=== PATIENT | male | born 1930 | race Caucasian/White ===

== ENCOUNTER 2017-12-25 10:15 | Emergency (ER) | payer MEDICARE, BC, MEDICAID ==
[2017-12-25 10:22] VITALS: BP 120/68
[2017-12-25] MEDS: Albuterol/Ipratropium 3.0-0.5 MG/3 ML Neb Soln NEB ONE (11:02)
--- NOTE | 2017-12-25 11:33 | EDM.PDOC ---
ED HPI GENERAL MEDICAL PROBLEM - General Chief Complaint: Respiratory Problem Stated Complaint: Chest Congestion, ?SOB Time Seen by Provider: 12/25/17 10:34 Source of Information: Reports: Patient, Family (son) History Limitations: Reports: Altered Mental Status - History of Present Illness INITIAL COMMENTS - FREE TEXT/NARRATIVE: HAs been having episodes where he will cough so hard he chokes and at times will vomit but it is thick mucus. He has been wheezing audibly at times. Son states that when he starts to cough at times it is so harsh he turns bright red. Mucus is usually a thick white with rajput streaks at times. No fever noted. Has been ongoing for awhile. Dr. Cortes recently changed him from claritin to mucinex to see f that would help more. They have not noted that it has been easier for him to expectorate it out. Onset: Gradual Location: Reports: Chest Associated Symptoms: Reports: Cough - Related Data Allergies Allergy/AdvReac Type Severity Reaction Status Date / Time Sulfa (Sulfonamide Allergy Hives Verified 12/25/17 10:22 Antibiotics) Home Meds: Home Meds Aspirin [Halfprin] 1 tab PO DAILY 04/03/15 [History] Metoprolol Tartrate 12.5 mg PO BID 04/03/15 [History] Cyanocobalamin (Vitamin B-12) [Cyanocobalamin Injection] 1,000 mcg IJ Q30D 04/10 [History] Insuln Asp Prot/Insulin Aspart [NovoLOG Mix 70-30] 24 unit SUBCUT BEDTIME [History] Insuln Asp Prot/Insulin Aspart [NovoLOG Mix 70-30] 48 unit SUBCUT ACBREAKFAST [History] Polyethylene Glycol 3350 [MiraLAX] 1 pkt PO DAILY 03/29/16 [History] Triamcinolone Acetonide [Triamcinolone Acetonide 0.1% Crm] 1 applic TOP BID PRN 03/29/16 [History] Lutein [Natural Lutein] 1 cap PO DAILY 12/25/17 [History] Magnesium 250 mg PO DAILY 12/25/17 [History] Pantoprazole Sodium 40 mg PO DAILY 12/25/17 [History] Sertraline HCl 50 mg PO DAILY 12/25/17 [History] guaiFENesin [Mucinex] 600 mg PO BID 03/01/18 [History] Past Medical History HEENT History: Reports: Impaired Vision Cardiovascular History: Reports: CAD, Heart Failure, Hypertension, PVD Respiratory History: Reports: None Gastrointestinal History: Reports: GERD Neurological History: Reports: TIA, Other (See Below) Other Neuro History: polyneuropathy Psychiatric History: Reports: Dementia Endocrine/Metabolic History: Reports: Diabetes, Type II Hematologic History: Reports: B12 Deficiency Dermatologic History: Reports: Other (See Below) Other Dermatologic History: dermatitis, pruritis - Past Surgical History GI Surgical History: Reports: Appendectomy, Cholecystectomy, Colonoscopy, Hernia Repair/Other Social & Family History - Tobacco Use Smoking Status *Q: Former Smoker Years of Tobacco use: 15 Packs/Tins Daily: 0.5 Used Tobacco, but Quit: Yes Month Tobacco Last Used: ?1989 - Recreational Drug Use Recreational Drug Use: No - Living Situation & Occupation Living situation: Reports: , Extended Care Facility Occupation: Retired ED ROS GENERAL - Review of Systems Review Of Systems: See Below Constitutional: Denies: Fever, Chills HEENT: Denies: Rhinitis, Sinus Problem, Throat Pain Respiratory: Reports: Shortness of Breath, Wheezing, Cough, Sputum (thick white with rajput mucus streaks.) Cardiovascular: Reports: No Symptoms GI/Abdominal: Reports: Vomiting (only when he starts to cough hard.) Musculoskeletal: Reports: No Symptoms ED EXAM, GENERAL - Physical Exam Exam: See Below Exam Limited By: No Limitations General Appearance: Alert, WD/WN, Mild Distress (with coughing) Ears: Normal External Exam, Normal Canal, Normal TMs Nose: Normal Inspection Throat/Mouth: Normal Inspection, Normal Oropharynx, No Airway Compromise Head: Atraumatic, Normocephalic Neck: Normal Inspection, Supple, Non-Tender Respiratory/Chest: No Respiratory Distress, Wheezing (to all initially. After duoneb treatment his wheezing did stop and he had occasional rhonchi noted.) Cardiovascular: Normal Peripheral Pulses, Regular Rate, Rhythm, No Edema GI/Abdominal: Normal Bowel Sounds, Soft Skin Exam: Warm, Dry, Intact Course - Vital Signs Last Recorded V/S: Last Vital Signs Temp 97.0 F 12/25/17 10:18 Pulse 92 12/25/17 10:18 Resp 20 12/25/17 10:18 BP 120/68 12/25/17 10:18 Pulse Ox 93 L 03/01/18 10:18 - Orders/Labs/Meds Orders: Active Orders 24 hr Category Date Time Status RT Aerosol Therapy [RC] ASDIRECTED Care 12/25/17 10:59 Active Chest 1V Frontal [CR] Stat Exams 12/25/17 10:40 Taken CULTURE SPUTUM + SMEAR [RM] Stat Lab 12/25/17 10:38 Ordered Labs: Laboratory Tests 12/25/17 12/25/17 Range/Units 10:40 10:40 WBC 8.3 (5.0-10.0) 10^3/uL RBC 5.41 (4.50-6.00) 10^6/uL Hgb 15.4 (14.0-18.0) g/dL Hct 47.6 (40.0-54.0) % MCV 88.0 (82.0-94.0) fL MCH 28.5 (27.0-32.0) pg MCHC 32.4 L (33.0-38.0) g/dL RDW Coeff of Jessica 14.8 (11.0-15.0) % Plt Count 172 (150-400) 10^3/uL Neut % (Auto) 72.2 (35-85) % Lymph % (Auto) 14.2 (10-55) % [place] % (Auto) 10.5 (0-16) % Eos % (Auto) 2.9 (0-5) % Baso % (Auto) 0.2 (0-3) % Neut # (Auto) 6.00 (1.80-7.00) 10^3/uL Lymph # (Auto) 1.18 (1.00-4.80) 10^3/uL [place] # (Auto) 0.87 H (0.00-0.80) 10^3/uL Eos # (Auto) 0.24 (0.00-0.45) 10^3/uL Baso # (Auto) 0.02 10^3/uL Sodium 137 (136-145) mEq/L Potassium 4.2 (3.5-5.0) mEq/L Chloride 98 (98-106) mEq/L Carbon Dioxide 28 (21-32) mmol/L BUN 19 H (7-18) mg/dL Creatinine 1.2 (0.7-1.3) mg/dL Est Cr Clr Drug Dosing 43.31 mL/min Estimated GFR (MDRD) 58 L (>=60) mL/min Glucose 344 H* D (75-99) mg/dL Calcium 9.3 (8.4-10.1) mg/dL C-Reactive Protein 4.6 H (0.2-0.8) mg/dL Meds: Medications Discontinued Medications Generic Name Dose Route Start Last Admin Trade Name Freq PRN Reason Stop Dose Admin Albuterol/Ipratropium 3 ml 12/25/17 10:58 12/25/17 11:02 Duoneb 3.0-0.5 Mg/3 Ml NEB 12/25/17 10:59 3 ml ONETIME ONE Administration - Re-Assessments/Exams Free Text/Narrative Re-Assessment/Exam: 12/25/17 11:30 In to discuss that will switch meds and will use the duonebs on prn as needed for wheezing CXR is unchanged and labs do not show any infections. Departure - Departure Time of Disposition: 11:28 Disposition: DC/Tfer to [facility] 65 Condition: Good Clinical Impression: Wheezing on auscultation - Discharge Information Additional Instructions: Stop the mucinex and start quaifenesin ER Duonebs bid prn as needed. - Problem List & Annotations (1) Wheezing on auscultation SNOMED Code(s): 99123525 Code(s): R06.2 - WHEEZING Status: Acute Priority: High Current Visit: Yes - Problem List Review Problem List Initiated/Reviewed/Updated: Yes - My Orders Last 24 Hours: My Active Orders 12/25/17 10:38 CULTURE SPUTUM + SMEAR [RM] Stat 12/25/17 10:40 Chest 1V Frontal [CR] Stat 12/25/17 10:59 RT Aerosol Therapy [RC] ASDIRECTED - Assessment/Plan Last 24 Hours: My Active Orders 12/25/17 10:38 CULTURE SPUTUM + SMEAR [RM] Stat 12/25/17 10:40 Chest 1V Frontal [CR] Stat 12/25/17 10:59 RT Aerosol Therapy [RC] ASDIRECTED
== END 2017-12-25 12:05 | disposition home or self-care (01) ==
LOC: CC.ED 10:15
DX: R06.2 Wheezing (principal); I11.0 Hypertensive heart disease with heart failure; I50.9 Heart failure, unspecified; E11.9 Type 2 diabetes mellitus without complications; K21.9 Gastro-esophageal reflux disease without esophagitis; Z87.891 Personal history of nicotine dependence; Z88.2 Allergy status to sulfonamides; Z79.82 Long term (current) use of aspirin; Z79.899 Other long term (current) drug therapy; Z79.4 Long term (current) use of insulin
CPT/HCPCS: 36415; 71045; 80048; 85025; 86140; 87070; 87205; 94640; 99284